=== PATIENT | female | born 1960 | race Caucasian/White ===

== ENCOUNTER 2018-10-01 08:29 | Outpatient (CLI) | payer OTHER | END 2018-10-01 12:26 | disposition home or self-care (01) | LOC: SONOGRAMA 08:29 | DX: E04.1 Nontoxic single thyroid nodule (principal) ==

== ENCOUNTER 2019-08-23 08:41 | Outpatient (CLI) | payer OTHER | END 2019-08-23 08:44 | disposition home or self-care (01) | LOC: SONOGRAMA 08:41 | DX: E04.1 Nontoxic single thyroid nodule (principal) ==